=== PATIENT | female | born 1955 | race Caucasian/White ===

== ENCOUNTER 2019-01-06 06:45 | Day surgery (SDC) | payer MEDICAID ==
[2019-01-06] MEDS ORDERED: Lactated Ringer's 1,000 ML IV ONE (08:32)
[2019-01-06 08:39] VITALS: BMI 34.9
[2019-01-06] MEDS ORDERED: Propofol 10 mg/ml Inj (20 ML) ONE ×2 (10:00→10:09)
[2019-01-06 12:03] VITALS: RESP 20
[2019-01-06 12:16] VITALS: O2SAT 95
[2019-01-06 13:04] VITALS: TEMP 98
[2019-01-06 15:24] VITALS: BP 114/68; PULSE 71
== END 2019-01-06 14:45 | disposition home or self-care (01) ==
LOC: H.OPSURG 06:45
PROVIDERS: ATTEND Internal Medicine Cardiovascular Disease
DX: I25.9 Chronic ischemic heart disease, unspecified (principal); Z95.2 Presence of prosthetic heart valve
CPT/HCPCS: 82948; 93312; J2001; J2704; J3010; J7120